=== PATIENT | female | born 1930 | race Caucasian/White ===

== ENCOUNTER → 2020-06-17 | Outpatient (CLI) | payer MEDICARE, OTHER ==
[~2020-06-17] MED LIST: CALCIUM CARBON500 M4 PO; DICLOFENAC SOD100 GM TP; EUTHYROX50 MCG PO; FURO80 PO; IRON18 MG; K-Dur10 MEQ PO; Lisinopril2.5 MG PO; Prednisone20 MG PO; Zovirax800 MG PO; [UNRECOGNIZED DRUG - OTHER] PO
== END | disposition home or self-care (01) ==
LOC: PLD 12:24 → LAB SHORT 12:24
DX: D48.5 Neoplasm of uncertain behavior of skin (principal)
CPT/HCPCS: 88305

== ENCOUNTER → 2020-07-27 | Outpatient (CLI) | payer OTHER, MEDICARE | END | disposition home or self-care (01) | LOC: LAB SHORT 07:58 → LAB 07:58 | DX: C44.729 Squamous cell carcinoma of skin of left lower limb, including hip (principal) | CPT/HCPCS: 88305 ==